=== PATIENT | female | born 1960 | race Caucasian/White ===

== ENCOUNTER → 2017-08-28 | Outpatient (CLI) | payer MEDICARE, OTHER ==
[~2017-08-28] MED LIST: ADJUSTABLE COMM1 MIS; ALBU.5I NEB; IPRA0.02 NEB; METO25TA3 PO; NEBULIZER/ADULT1 KIT; OXYGENDME NAS.CANULA; PRED20 PO; PRIL20TA2 PO; WALKER WHEELS/F1 MIS
== END ==
LOC: PHRSP 08:27
PROVIDERS: ATTEND Internal Medicine Pulmonary Disease
DX: R06.00 Dyspnea, unspecified (principal); J98.4 Other disorders of lung; K50.90 Crohn's disease, unspecified, without complications
CPT/HCPCS: 94010